=== PATIENT | female | born 1945 | race Caucasian/White ===

== ENCOUNTER 2024-11-02 07:08 | Emergency (ER) | payer BC ==
--- OUTSIDE RECORDS SUMMARY | 2024-11-02 07:11 | XMS REPORT | Continuity of Care Document ---
Author Name Unknown Address [address] [facility] [place] [address] [facility]connect Address [address] [facility] [place] [address] Care Team Providers Care Devil Tender Name Role Phone GUNNER MA Attending Clinician Unavailab RUIZ Lynch Attending Clinician Unavailable SIMI FRASER Attending Clinician Unavailable LAB90 Attending Clinician Unavailable Ruiz Tovar DO Attending Clinician [phone] Payers Payer Name Policy Type Policy Number Effective Date Expirati on Date Source [facility] 2 [id number] 2021 00:00:00 Problems Condition Name Condition Details Condition Category Status Onset Date Resolution Date Last Treatment Date Treating Clinician Comments Source Prediabete s Prediabete s Disease Active 05-07 00:00: 00 Overview: Formattin g of this note might be different from the original. Lab 04/2022 A1c 5.8 Violet Seybold - Externa l Seasonal allergic rhinitis due to pollen Seasonal allergic rhinitis due to pollen Disease Active 05-06 00:00: 00 Violet Seybold - Externa l Primary hypertensi on Primary hypertensi on Disease Active 05-06 00:00: 00 Violet Seybold - Externa l Well adult exam Well adult exam Disease Active 05-06 00:00: 00 Violet Seybold - Externa l Overweight (BMI 25.0-29.9) Overweight (BMI 25.0-29.9) Disease Active 05-06 00:00: 00 Violet Petersonold - Externa l Rheumatoid arthritis involving multiple sites with positive rheumatoid factor (multi HCC) Rheumatoid arthritis involving multiple sites with positive rheumatoid factor (multi HCC) Disease Active 03-06 00:00: 00 Overview: Formattin g of this note might be different from the original. Sees Dr. 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 Hx compressi on fx Violet Petersonold - Externa l Primary hypertensi on Primary hypertensi on Disease Active 03-06 00:00: 00 Violet Petersonold - Externa l Acquired hypothyroi dism Acquired hypothyroi dism Disease Active 03-06 00:00: 00 Violet Seybold - Externa l Social History Social Habit Start Date Stop Date Quantity Comments Source ASSERTION Not Violet Maldonado - External History of Occupation Violet Maldonado - External Sexual orientation K olivier Joel - External Alcoholic beverage intake 2024-10-27 00:00:00 2024-10-27 00:00:00 Lifetime non-drinker (finding) Violet Maldonado - External History of Social function 2024-10-27 00:00:00 2024-10-27 00:00:00 Violet Maldonado - External Alcohol intake 2023-08-20 00:00:00 2023-08-20 00:00:00 Lifetime non-drinker (finding) Violet Maldonado - External Tobacco use and exposure 2022-05-06 00:00:00 2022-05-06 00:00:00 Smokeless tobacco non-user Violet Maldonado - External Education 2022-05-06 00:00:00 2022-05-06 00:00:00 12 Violet Maldonado - External Sex 2021-02-13 17:13:21 2021-02-13 17:13:21 Female (finding) Violet Sinha Sex assigned at 1945 00:00:00 1945 00:00:00 Violet Sinha Smoking Status Start Date Stop Date Source Never smoked tobacco Violet Sinha Medications Ordered Medication Name Filled Medication Name Start Date Stop Date Current Medication? Ordering Clinician Indication Dosage Frequency Signature (SIG) Comments Components Source methylpredn isolone succinate (SOLU-MEDRO L) 40 mg/mL injection 2023-11 10:22: 28 No [id number] 40mg 40 mg, intramuscu lar, ONCE, On Fri10/27/24 at 1015, For 1 dose Violet wagoner Leflunomide 20 MG oral Tablet 2023-11 09:49: 07 Yes 20mg Take 1 tablet (20 mg total) by mouth 4 TIMES A WEEK. Violet wagoner Aspirin 81 MG oral Tablet Delayed Response 2023-11 09:49: 07 Yes 81mg QD Take 1 tablet (81 mg total) by mouth daily. Violet wagoner Abatacept (Orencia) 250 MG intravenous Recon Soln 2023-11 09:49: 07 Yes 4mL Inject 4 mL into the vein once a month Violet wagoner Insulin Syringe-Nee dle U-100 (INSULIN SYRINGE 1CC/31GX5/1 6") 31G X 5/16" 1 ML does not apply [facility] 2023-11 09:49: 07 Yes insulin syringe 31g x 5/16" 1 ml [facility] Violet wagoner hydroCHLORO thiazide 12.5 MG oral Capsule 2023-11 00:00: 00 Yes [id number] 12.5mg Take 1 capsule (12.5 mg total) by mouth every morning. Violet wagoner Levothyroxi ne Sodium 100 MCG oral Tablet 03-05 00:00: 00 Yes [id number] 100ug QD Take 1 tablet (100 mcg total) by mouth daily. Violet wagoner Pantoprazol e Sodium 40 MG oral Tablet Delayed Response 01-25 00:00: 00 Yes [id number] 40mg QD Take 1 tablet (40 mg total) by mouth daily. Violet wagoner Amlodipine Besylate 2.5 MG oral Tablet 2022-11 00:00: 00 Yes [id number] 2.5mg QD TAKE 1 TABLET(2.5 MG) BY MOUTH DAILY Violet wagoner Hydroxychlo roquine Sulfate 200 MG oral Tablet 2022-11 10:42: 11 08-20 00:00 :00 No hydroxychl oroquine 200 mg tablet Violet wagoner Sulfasalazi ne 500 MG oral Tablet 2022-11 10:41: 30 08-20 00:00 :00 No 500mg Take 1 tablet (500 mg total) by mouth 3 times daily. Violet wagoner Tizanidine HCl 4 MG oral Tablet 2022-11 10:41: 24 08-20 00:00 :00 No 4mg Take 1 tablet (4 mg total) by mouth 4 times daily. Violet wagoner Zoledronic Acid (RECLAST) 5 MG/100ML intravenous Solution 2022-11 10:41: 14 08-20 00:00 :00 No Inject into the vein once Violet wagoner Leflunomide 10 MG oral Tablet 2022-11 10:24: 58 Yes 10mg Take 1 tablet (10 mg total) by mouth 4 TIMES A WEEK. Violet wagoner Aspirin 81 MG oral Tablet Delayed Response 2022-11 10:24: 58 Yes 81mg Take 1 tablet (81 mg total) by mouth daily. Violet wagoner Abatacept (Orencia) 250 MG intravenous Recon Soln 2022-11 10:24: 58 Yes 4mL Inject 4 mL into the vein once a month Violet wagoner Insulin Syringe-Nee dle U-100 (INSULIN SYRINGE 1CC/31GX5/1 6") 31G X 5/16" 1 ML does not apply Misc 2022-11 10:24: 58 Yes insulin syringe 31g x 5/16" 1 ml [facility] Violet wagoner Enalapril Maleate 20 MG oral Tablet 2022-11 00:00: 00 Yes [id number] 20mg QD Take 1 tablet (20 mg total) by mouth daily. Violet wagoner Hydroxychlo roquine Sulfate 200 MG oral Tablet 2022-11 00:00: 00 Yes [id number] 200mg Q.5D Take 1 tablet (200 mg total) by mouth 2 times daily. Violet wagoner Gabapentin 100 MG oral Capsule 2022-11 00:00: 00 Yes [id number] 100mg Q.5D Take 1 capsule (100 mg total) by mouth 2 times daily. Violet wagoner Pantoprazol e Sodium 40 MG oral Tablet Delayed Response 2022-11 00:00: 00 Yes [id number] 40mg Take 1 tablet (40 mg total) by mouth daily. Violet wagoner Amlodipine Besylate 2.5 MG oral Tablet 2022-11 00:00: 00 Yes [id number] 2.5mg Take 1 tablet (2.5 mg total) by mouth daily. Violet wagoner Levothyroxi ne Sodium 112 MCG oral Tablet 2022-11 00:00: 00 Yes [id number] 112ug Take 1 tablet (112 mcg total) by mouth daily. Violet wagoner hydroCHLORO thiazide 12.5 MG oral Capsule 2022-11 00:00: 00 10-27 00:00 :00 No [id number] 12.5mg Take 1 capsule (12.5 mg total) by mouth every morning. Violet wagoner Enalapril Maleate 20 MG oral Tablet 08-03 00:00: 00 08-20 00:00 :00 No [id number] 20mg Take 1 tablet (20 mg total) by mouth daily. Violet wagoner Amlodipine Besylate 2.5 MG oral Tablet 08-03 00:00: 00 08-20 00:00 :00 No [id number] 2.5mg Take 1 tablet (2.5 mg total) by mouth daily. Violet wagoner hydroCHLORO thiazide 12.5 MG oral Capsule 05-23 00:00: 00 08-20 00:00 :00 No [id number] 12.5mg Take 1 capsule (12.5 mg total) by mouth every morning Violet wagoner Gabapentin 100 MG oral Capsule 05-23 00:00: 00 08-20 00:00 :00 No Violet wagoner FLUTICASONE PROPIONATE, NASAL, 50 MCG/ACT nasal Suspension 04-18 00:00: 00 Yes [id number] 50ug QD Use 1 spray (50 mcg total) in each nostril daily Violet wagoner Levothyroxi ne Sodium 112 MCG oral Tablet 04-18 00:00: 00 08-20 00:00 :00 No [id number] 112ug Take 1 tablet (112 mcg total) by mouth daily Violet wagoner Methotrexat e, PF, 50 MG/2ML injection Solution 02-21 00:00: 00 Yes INJECT 0.5 ML SUBCUTANEO US ONCE A WEEK Violet wagoner Folic Acid 1 MG oral tablet 02-20 00:00: 00 Yes 2mg QD Take 2 tablets (2 mg total) by mouth daily. Violet wagoner Immunizations Ordered Immunization Name Filled Immunization Name Date Status Comments Source Pneumococcal Vaccine, Conjugate 13 Unknown Completed Violet Sinha Covid-19 Vaccine Moderna (Spikevax), Mrna-lnp, Ivan Protein, Pf Unknown Completed Violet Pandya [facility] Tdap- (Boostrix, Adacel) Unknown Completed Violet Sinha Shingles SQ (Zostavax) Unknown Completed Violet Sinha Influenza Virus Vaccine, Quadrivalent, High Dose, Age 65 And Up Unknown Completed Violet rodríguez [facility] Shingles IM (Shingrix) Unknown Completed Violet Maldonado Bharath Pneumococcal Vaccine, Conjugate 13 Unknown Completed Violet Sinha Covid-19 Vaccine Moderna (Spikevax), Mrna-lnp, Ivan Protein, Pf Unknown Completed Violet Pandya [facility] Tdap- (Boostrix, Adacel) Unknown Completed Violet Maldonado - External Shingles SQ (Zostavax) Unknown Completed Violet Petersonliv - External Influenza Virus Vaccine, Quadrivalent, High Dose, Age 65 And Up Unknown Completed Violet Jeffrey harmonbold - External Vital Signs Vital Name Observation Time Observation Value Fadia millan Systolic blood pressure 2024-10-27 15:43:00 120 mm[Hg] Violet Rosarioybo ld - External Diastolic blood pressure 2024-10-27 15:43:00 62 mm[Hg] Violet Rosarioybo ld - External Heart rate 2024-10-27 15:43:00 85 /min Prince y Seybold - External Respiratory rate 2024-10-27 15:43:00 18 /min Violet Rosarioybold - External Body height 2024-10-27 15:43:00 167.6 cm Macie ey Seybold - External Body weight 2024-10-27 15:43:00 82.101 kg Macie ey Seybold - External BMI 2024-10-27 15:43:00 29.21 kg/m2 Macie ey Seybold - External Oxygen saturation in Arterial blood by Pulse oximetry 2024-10-27 15:43:00 92 /min Violet Petersono ld - External Heart rate 2023-08-20 15:20:00 81 /min Princese deal Seybold - External Body temperature 2023-08-20 15:20:00 37.06 Petrona Violet Rosarioybold - External Respiratory rate 2023-08-20 15:20:00 20 /min Violet Rosarioybold - External Body height 2023-08-20 15:20:00 167.6 cm Macie ey Seybold - External Body weight 2023-08-20 15:20:00 80.377 kg Macie ey Seybold - External BMI 2023-08-20 15:20:00 28.60 kg/m2 Macie ey Seybold - External Systolic blood pressure 2023-08-20 15:20:00 130 mm[Hg] Violet Rosarioybo ld - External Diastolic blood pressure 2023-08-20 15:20:00 89 mm[Hg] Violetsue Petersono ld - External Encounters Start Date/Time End Date/Time Encounter Type Admission Type Attending [facility] Facility Care Department Encounter ID Source 2024-12-29 09:00:00 2024-12-29 09:00:00 Outpatient [facility]UNNER [facility] [id number] [facility] 2024-10-27 09:30:00 2024-10-27 09:30:00 Outpatient GUNNER MA VIOLET [id number] Violet Rosarioliv 2024-05-19 00:00:00 2024-05-19 00:00:00 Outpatient PREZAS, RUIZ VIOLET MARIN [id number] Violet [facility] 2024-03-31 00:00:00 2024-03-31 00:00:00 Outpatient AGASIMI VIOLET MARIN [id number] Violet [facility] 2024-03-05 00:00:00 2024-03-05 00:00:00 Outpatient PREZAS, RUIZ VIOLET MARIN [id number] Violet [facility] 2024-02-25 00:00:00 2024-02-25 00:00:00 Outpatient PREZAS, RUIZ [facility]IOLET MAR[facility] [id number] [facility]24-[facility] 00:00:00 2024-01-25 00:00:00 Outpatient PREZAS, RUIZ VIOLET MARIN [id number] [facility] 2023-12-18 00:00:00 2023-12-18 00:00:00 Outpatient PREZAS, RUIZ VIOLET MARIN [id number] Violet [facility] 2023-12-18 00:00:00 2023-12-18 00:00:00 Outpatient PREZAS, URIZ VIOLET MARIN [id number] [facility] 2023-12-16 10:50:00 2023-12-16 10:50:00 Outpatient LABAlejandro MARIN [id number] [facility] 2023-11-25 00:00:00 2023-11-25 00:00:00 Outpatient PREZAS, RUIZ VIOLET MARIN [id number] [facility] 2023-10-16 00:00:00 2023-10-16 00:00:00 Outpatient PREZAS, RUIZ MARIN [id number] [facility] 2023-10-15 09:30:00 2023-10-15 09:30:00 Outpatient LAB90 VIOLET MARIN [id number] [facility] 2023-10-11 00:00:00 2023-10-11 00:00:00 Outpatient PREZAS, RUIZ MARIN [id number] Violet Rosarioybliv 2023-08-28 00:00:00 2023-08-28 00:00:00 Outpatient PREZAS, RUIZ MARIN VIOLET [id number] [facility] 2023-08-28 00:00:00 2023-08-28 00:00:00 Outpatient PREZAS, RUIZ MARIN VIOLET [id number] [facility] 2023-08-27 08:35:00 2023-08-27 08:35:00 Outpatient LAB90 VIOLET MARIN [id number] [facility] 2023-08-20 10:15:00 2023-08-20 10:15:00 Outpatient PREZAS, RUIZ MARIN VIOLET [id number] [facility] 2023-08-03 00:00:00 2023-08-03 00:00:00 Outpatient PREZAS, RUIZ MARIN VOILET [id number] [facility] 2023-08-03 00:00:00 2023-08-03 00:00:00 Outpatient PREZAS, RUIZ MARIN VIOLET [id number] [facility] 2023-08-03 00:00:00 2023-08-03 00:00:00 Outpatient PREZAS, RUIZ MARIN VIOLET [id number] [facility] 2023-07-02 00:00:00 2023-07-02 00:00:00 Outpatient PREZAS, RUIZ MARIN VIOLET [id number] [facility] 2023-07-01 00:00:00 2023-07-01 00:00:00 Outpatient PREZAS, RUIZ MARIN VIOLET [id number] [facility] 2023-05-23 00:00:00 2023-05-23 00:00:00 Outpatient PREZAS, RUIZ VIOLET MARIN [id number] [facility] 2023-05-23 00:00:00 2023-05-23 00:00:00 Outpatient PREZAS, RUIZ MARIN VIOLET [id number] [facility] 2023-04-18 00:00:00 2023-04-18 00:00:00 Outpatient PREZAS, RUIZ MARIN VIOLET [id number] [facility] 2023-04-18 00:00:00 2023-04-18 00:00:00 Outpatient PREZAS, RUIZ MARIN VIOLET [id number] [facility] 2023-01-27 00:00:00 2023-01-27 00:00:00 Outpatient PREZAS, RUIZ MARIN VIOLET [id number] Violet [facility] 2022-12-26 00:00:00 2022-12-26 00:00:00 Outpatient PREZAS, RUIZ MARIN VIOLET [id number] Violet [facility] 2022-12-25 00:00:00 2022-12-25 00:00:00 Outpatient PREZAS, RUIZ MARIN VIOLET [id number] [facility] 00:00:00 2022 00:00:00 Outpatient PREZAS, RUIZ MARIN VIOLET [id number] [facility] 2022-09-25 00:00:00 2022-09-25 00:00:00 Outpatient PREZAS, RUIZ MARIN VIOLET [id number] [facility] 2022-08-16 00:00:00 2022-08-16 00:00:00 Outpatient PREZAS, RUIZ VIOLET VIOLET [id number] [facility] 2022-08-15 10:40:00 2022-08-15 10:40:00 Outpatient LABAlejandro MARIN VIOLET [id number] [facility] 2022-08-14 00:00:00 2022-08-14 00:00:00 Outpatient PREZAS, RUIZ VIOLET VIOLET [id number] [facility] 2022-08-02 00:00:00 2022-08-02 00:00:00 Outpatient PREZAS, RUIZ VIOLET MARIN [id number] [facility] 2022-05-08 00:00:00 2022-05-08 00:00:00 Outpatient RUIZ TOVAR VIOLET [id number] [facility] 2022-05-07 00:00:00 2022-05-07 00:00:00 Outpatient RUIZ TOVAR VIOLET [id number] [facility] 2022-05-06 10:15:00 2022-05-06 10:15:00 Outpatient LAB90 VIOLET MARIN [id number] [facility] 2022-05-06 09:15:00 2022-05-06 10:00:00 Office Visit Ruiz Tovar Jackson [id number] Violet Maldonado
[2024-11-02 08:13] LABS: Absolute Basophils 0.1 K/uL (0-0.5); Absolute Eosinophils 0.4 K/uL (0-0.5); Absolute Lymphocytes (CBC) 2.2 K/uL (0.7-4.9); Absolute Monocytes 1.2 K/uL (0.1-1.3); Absolute Neutrophil 6.8 K/uL (1.8-8.0); Basophils % 0.5 % (0-1.3); Eosinophils % 3.4 % (0-4.4); Hematocrit 42.8 % (36.0-45.0); Hemoglobin 13.9 g/dL (12.0-15.0); Lymphocytes % 20.7 % (15.3-44.8); MCH 30.2 pg (27.0-35.0); MCHC 32.4 g/dL (32.0-36.0); MCV 93.1 fL (80-100); MPV 8.3 fL (7.6-11.3); Monocytes % 11.7 % (3.3-12.3); Neutrophils % 63.7 % (41.7-73.7); Nucleated Red Blood Cells % 0.1 % (0-0); Platelets 272 thou/uL (152-406); Red Cell Distribution Width 17.3 % (12.1-15.2)
[2024-11-02 08:34] LABS: Albumin 3.1 g/dL (3.4-5.0); Albumin/Globulin Ratio 0.8 (1.1-1.8); Anion Gap 7.8 mEq/L (5.0-15.0); Bilirubin Direct 0.3 mg/dL (0-0.2); Bilirubin Indirect, Calculated 0.7 mg/dL (0.2-0.8); Magnesium 2.2 mg/dL (1.6-2.4); Potassium 3.8 mEq/L (3.5-5.1); Protein, Total 7.1 g/dL (6.4-8.2); Troponin High Sensitivity 10.9 pg/mL (<58.9)
--- NOTE | 2024-11-02 08:37 | RAD REPORT ---
EXAMINATION: XR LEFT WRIST CLINICAL INDICATION: PAIN TECHNIQUE: Multiple projections of the left wrist were obtained. COMPARISON: No prior exam. FINDINGS: Mildly impacted distal radius fracture is seen. No dislocation seen however examination is limited by nonstandard anatomic positioning. No additional fracture evident.
--- NOTE | 2024-11-02 08:38 | RAD REPORT ---
EXAMINATION: ONE VIEW CHEST XR CLINICAL INDICATION: syncope TECHNIQUE: Frontal chest projection is submitted. Examination is limited by patient positioning and t echnique. COMPARISON: 09/02/2012 FINDINGS: The lungs are well inflated and clear. The heart is upper limit of normal in size. No displaced fract ures identified. IMPRESSION: No acute intrathoracic abnormalities.
--- NOTE | 2024-11-02 08:41 | RAD REPORT ---
EXAM: CT brain without contrast HISTORY: SYNCOPE COMPARISON: None TECHNIQUE: Multiple contiguous axial images were obtained and a CT of the brain without contrast. Sag ittal and coronal reformats were performed. One or more of the following dose reduction techniques were used: Automated exposure control, adjust ment of the mA and/or kV according to patient size, and/or iterative reconstruction. FINDINGS: No evidence of hydrocephalus, intracranial hemorrhage, or extra-axial fluid collection. Mild brain atrophy with mild periventricular and deep white matter chronic microvascular ischemic ch anges present. No evidence of midline shift or areas of brain edema. The calvarium is intact. The visualized paranasal sinuses and mastoid air cells are essentially clear . IMPRESSION: No evidence of acute intracranial abnormality. EXAM: CT of the cervical spine without contrast HISTORY: Neck pain, injury SYNCOPE TECHNIQUE: Multiple contiguous axial images were obtained in a CT of the cervical spine without contr ast. Sagittal and coronal reformats were performed. FINDINGS: The vertebral bodies demonstrate normal height and alignment. No evidence of acute fracture or subluxation.. Mild mid and lower cervical spondylosis. No prevertebral soft tissue swelling is seen. The posterior facets are well aligned. Normal alignment of the skull base with the cervical spine is seen. The lung apices are unremarkable. IMPRESSION: No evidence of acute osseous abnormality of the cervical spine. Mild cervical spondylosis.
[2024-11-02] MEDS ORDERED: ONDANSETRON 4 MG/2 ML VIAL ONE (09:29)
[2024-11-02] MEDS ORDERED: MORPHINE 4 MG/ML SYR ONE (09:29)
--- NOTE | 2024-11-02 11:07 | ER ---
Nurse's Notes [facility] Name: Maria Kong Age: 79 yrs Sex: Female : 1945 Arrival Date: 11/02/2024 Time: 07:08 Bed 13 Private MD: Diagnosis: Pain in left wrist;Other fractures of lower end of radius;Syncope Presentation: 11/02 07:24 Chief complaint: Patient states: Syncopal episode this morning while making coffee. Pt ss c/o L wrist pain, and low back pain. Back pain has reportedly been ongoing x 3 weeks. Coronavirus screen: Client denies travel out of the [place] in the last 14 days. Ebola Screen: Patient denies exposure to infectious person. Patient denies travel to an Ebola-affected area in the 21 days before illness onset. Initial Sepsis Screen: Does the patient meet any 2 criteria? No. Patient's initial sepsis screen is negative. Does the patient have a suspected source of infection? No. Patient's initial sepsis screen is negative. Risk Assessment: Do you want to hurt yourself or someone else? Patient reports no desire to harm self or others. Onset of symptoms was November 02, 2024. 07:24 Method Of Arrival: Ambulatory ss 07:24 Acuity: MELLISSA 3 ss Historical: - Allergies: 08:07 No Known Allergies; ph - PMHx: 07:26 Hypertensive disorder; Rheumatoid arthritis; ss - Immunization history:: Adult Immunizations unknown. - Infectious Disease History:: Denies. - Social history:: Smoking status: unknown. Screenin:30 [facility] ED Fall Risk Assessment (Adult) History of falling in the last 3 months, ph including since admission Yes- physiologic fall (2 pts) Confusion or Disorientation No (0 pts) Intoxicated or Sedated No (0 pts) Impaired Gait No (0 pts) Mobility Assist Device Used No (0 pt) Altered Elimination No (0 pt) Score/Fall Risk Level 0 - 2 = Low Risk Oriented to surroundings, Maintained a safe environment, Hourly rounding (assess needs \T\ fall precautionary measures) done. Abuse screen: Denies threats or abuse. Denies injuries from another. Nutritional screening: No deficits noted. Tuberculosis screening: No symptoms or risk factors identified. Assessment: 08:05 General: Appears in no apparent distress. uncomfortable, Behavior is calm, cooperative, ph appropriate for age. Pain: Complains of pain in left wrist. Pain: Complains of pain in low back area. Neuro: Level of Consciousness is awake, alert, obeys commands, Oriented to person, place, time, situation. Cardiovascular: Reports syncope, Capillary refill < 3 seconds in bilateral fingers Patient's skin is warm and dry. Respiratory: Airway is patent Respiratory effort is even, unlabored, Respiratory pattern is regular, symmetrical. GI: No signs and/or symptoms were reported involving the gastrointestinal system. Derm: Skin is pink, warm \T\ dry. Musculoskeletal: Circulation, motion, and sensation intact. 09:27 Reassessment: Patient appears in no apparent distress at this time. Patient and/or ph family updated on plan of care and expected duration. Pain level reassessed. Patient is alert, oriented x 3, equal unlabored respirations, skin warm/dry/pink. Pt ambulatory to restroom with steady gait, denies dizziness. 09:50 Reassessment: Patient appears in no apparent distress at this time. Patient and/or ph family updated on plan of care and expected duration. Pain level reassessed. Patient is alert, oriented x 3, equal unlabored respirations, skin warm/dry/pink. L wrist placed i traction using finger traps and counter weight, pt tolerating well. Vital Signs: 07:24 BP 147 / 100; Pulse 80; Resp 16; Pulse Ox 99% on R/A; Pain 10/10; ss 09:30 BP 130 / 89; Pulse 76; Resp 18; Pulse Ox 97% on R/A; ph 10:30 BP 142 / 90; Pulse 80; Resp 18; Pulse Ox 99% on R/A; ph 11:50 BP 138 / 92; Pulse 72; Resp 18; Temp 98; Pulse Ox 98% on R/A; ph 07:24 Pain Scale: Adult ss ED Course: 07:14 Patient arrived in ED. sj2 07:17 Juan C Siddiqui DO is Attending Physician. ms3 07:22 Sandra De La Torre, RN is Primary Nurse. ph 07:26 Triage completed. ss 07:26 Arm band placed on right wrist. ss 07:31 Patient has correct armband on for positive identification. Bed in low position. Call ph light in reach. Side rails up X 1. Pulse ox on. NIBP on. Door closed. Noise minimized. Warm blanket given. Pillow given. 08:05 Initial lab(s) drawn, by me, sent to lab. EKG done, by ED staff, reviewed by Juan C Siddiqui DO. Inserted saline lock: 22 gauge in right antecubital area, using aseptic technique. Blood collected. Flushed with 10 mL NS. 08:07 Provided Education on: Estimated time for test results. ph 08:15 CT Head C Spine In Process Unspecified. EDMS 08:15 Chest Single View XRAY In Process Unspecified. EDMS 08:15 Wrist Left 2 View In Process Unspecified. EDMS 10:35 Orthoglass splint: Sugar tong splint applied on left arm. ph 11:06 Javi Conrad MD is Referral Physician. ms3 11:51 No provider procedures requiring assistance completed. IV discontinued, intact, ph bleeding controlled, No redness/swelling at site. Pressure dressing applied. Administered Medications: 09:50 Drug: morphine IVP or IV 4 mg IVP once over 4 mins Route: IVP; Infused Over: 4 mins; ph Site: right antecubital; 10:00 Follow up: Response: No adverse reaction; Pain is decreased; RASS: Alert and Calm (0) ph Medication: 07:31 VIS not applicable for this client. ph Outcome: 11:07 Discharge ordered by . ms3 11:52 Discharged to home via wheelchair, with significant other, ph 11:52 Condition: good 11:52 Discharge instructions given to patient, significant other, Instructed on discharge instructions, follow up and referral plans. medication usage, Demonstrated understanding of instructions, follow-up care, medications, Prescriptions given X 1, 11:52 Patient left the ED. ph Signatures: Dispatcher [employer] EDMS Analilia Hyman RN RN Sandra Gu RN RN ph Sims, Marcus, DO DO ms3 Roxana Veloz sj2
--- NOTE | 2024-11-02 11:07 | EDPHYS ---
Physician Documentation [facility] Name: Maria Kong Age: 79 yrs Sex: Female : 1945 Arrival Date: 11/02/2024 Time: 07:08 Bed 13 Private MD: ED Physician Juan C Siddiqui HPI: 11/02 10:56 This 79 yrs old Female presents to ER via Ambulatory with complaints of Fall Injury. ms3 10:56 Maria Kong is a 79-year-old female with a past medical history of rheumatoid ms3 arthritis and hypertension. She presents to the Emergency Department today due to a fall and immobility in her left wrist. This morning around 6 a.m., she blacked out after making coffee and was found by her on the floor. She does not recall if she hit her head during the fall. She reports that her lower back pain is chronic, currently at a pain level of 1 to 2, but at its worst, it reaches a pain level of 10. . Historical: - Allergies: 08:07 No Known Allergies; ph - PMHx: 07:26 Hypertensive disorder; Rheumatoid arthritis; ss - Immunization history:: Adult Immunizations unknown. - Infectious Disease History:: Denies. - Social history:: Smoking status: unknown. ROS: 10:56 Constitutional: Negative for fever, and chills. Cardiovascular: Negative for chest ms3 pain, and palpitations. Respiratory: Negative for shortness of breath, cough, wheezing, and pleuritic chest pain, Abdomen/GI: Negative for abdominal pain, nausea, vomiting, diarrhea, and constipation, 10:56 MS/extremity: Positive for Left wrist pain, 10:56 Neuro: Positive for syncope, Exam: 10:56 Constitutional: This is a well developed, well nourished patient who is awake, alert, ms3 and in no acute distress. Chest/axilla: Normal chest wall appearance and motion. Nontender with no deformity. Cardiovascular: Regular rate and rhythm with a normal S1 and S2. No gallops, murmurs, or rubs. Normal PMI, no JVD. No pulse deficits. Respiratory: Lungs have equal breath sounds bilaterally, clear to auscultation and percussion. No rales, rhonchi or wheezes noted. No increased work of breathing, no retractions or nasal flaring. Abdomen/GI: Soft, non-tender, with normal bowel sounds. No distension or tympany. No guarding or rebound. No evidence of tenderness throughout. Skin: Warm, dry with normal turgor. Normal color with no rashes, no lesions, and no evidence of cellulitis. 10:56 Musculoskeletal/extremity: Extremities: noted in the left wrist: decreased ROM, pain, swelling, tenderness, 11:00 ECG was reviewed by the Attending Physician. ms3 Vital Signs: 07:24 BP 147 / 100; Pulse 80; Resp 16; Pulse Ox 99% on R/A; Pain 10/10; ss 09:30 BP 130 / 89; Pulse 76; Resp 18; Pulse Ox 97% on R/A; ph 10:30 BP 142 / 90; Pulse 80; Resp 18; Pulse Ox 99% on R/A; ph 11:50 BP 138 / 92; Pulse 72; Resp 18; Temp 98; Pulse Ox 98% on R/A; ph 07:24 Pain Scale: Adult ss MDM: 07:36 Medical Screening Exam initiated ms3 10:58 Differential diagnosis: abrasion, closed head injury, contusion, fracture, sprain, ms3 strain, Arrythmia. 11:08 Data reviewed: vital signs, nurses notes, lab test result(s), EKG, radiologic studies, ms3 and as a result, I will discharge patient. Consideration of Admission/Observation Escalation of care including admission/observation considered. Patient declines observation. I considered the following discharge prescriptions or medication management in the emergency department Medications were administered in the Emergency Department. See MAR. Independent interpretation of the following test(s) in the Emergency Department EKG: See my EKG interpretation above X-Ray: My interpretation is Left wrist x-ray images reviewed by me reveals radius fracture. Care significantly affected by the following chronic conditions: Hypertension. 11:09 Counseling: I had a detailed discussion with the patient and/or guardian regarding the ms3 historical points, exam findings, and any diagnostic results supporting the discharge/admit diagnosis, lab results, radiology results, the need for outpatient follow up, to return to the emergency department if symptoms worsen or persist or if there are any questions or concerns that arise at home. Response to treatment: the patient's symptoms have markedly improved after treatment, and as a result, I will discharge patient. Refusal of service: The patient/guardian displays adequate decision making capability and despite a detailed discussion of alternatives, benefits, risks, and consequences refuses: Admission to the hospital for further work-up and treatment. ED course: Discussed observation with the patient and patient declines. Discussed with patient concern for arrhythmia, or other cause for syncope that may go undiagnosed causing disability or . Patient to follow-up with her primary care physician in 2 to 3 days. Patient to follow-up Dr. Conrad in 2 to 3 days. Patient understands and agrees with plan. All questions were answered. Return precautions discussed include worsening symptoms, or any other concerns.. 11/02 07:37 Order name: Basic Metabolic Panel; Complete Time: 08:44 ms3 11/02 07:37 Order name: CBC with Diff; Complete Time: 08:44 ms3 11/02 07:37 Order name: Hepatic Function; Complete Time: 08:44 ms3 11/02 07:37 Order name: Magnesium; Complete Time: 08:44 ms3 11/02 07:37 Order name: Troponin High Sensitivity; Complete Time: 08:44 ms3 11/02 07:37 Order name: CT Head C Spine; Complete Time: 08:44 ms3 11/02 07:37 Order name: Chest Single View XRAY; Complete Time: 08:44 ms3 11/02 08:15 Order name: Wrist Left 2 View; Complete Time: 08:44 EDMS 11/02 07:37 Order name: Cardiac monitoring; Complete Time: 08:03 ms3 11/02 07:37 Order name: EKG - Nurse/Tech; Complete Time: 08:03 ms3 11/02 07:37 Order name: IV Saline Lock; Complete Time: 08:03 ms3 11/02 07:37 Order name: Labs collected and sent; Complete Time: 08:03 ms3 11/02 07:37 Order name: NPO; Complete Time: 08:03 ms3 11/02 07:37 Order name: O2 Per Protocol; Complete Time: 08:03 ms3 11/02 07:37 Order name: O2 Sat Monitoring; Complete Time: 08:03 ms3 EC:00 Rate is 65 beats/min. Rhythm is regular. Left axis deviation noted. AL interval is ms3 normal. QRS interval is prolonged. Clinical impression: NSR w/ Non-specific ST/T Changes and LBBB. Interpreted by me. Reviewed by me. Administered Medications: :50 Drug: morphine IVP or IV 4 mg IVP once over 4 mins Route: IVP; Infused Over: 4 mins; ph Site: right antecubital; 10:00 Follow up: Response: No adverse reaction; Pain is decreased; RASS: Alert and Calm (0) ph Disposition Summary: 11/02/24 11:07 Discharge Ordered Notes: Location: Home ms3 Condition: Stable ms3 Diagnosis - Pain in left wrist ms3 - Other fractures of lower end of radius ms3 - Syncope ms3 Followup: ms3 - With: Javi Conrad MD - When: 2 - 3 days - Reason: Recheck today's complaints Discharge Instructions: - Discharge Summary Sheet ms3 - Musculoskeletal Pain ms3 - Syncope ms3 - Syncope, [id number] ms3 Forms: - Medication Reconciliation Form ms3 - Antibiotic Education ms3 - Prescription Opioid Use ms3 - Patient Portal Instructions ms3 - Leadership Thank You Letter ms3 Prescriptions: - Tramadol 50 mg Oral Tablet - take 1 tablet ORAL route every 8 hours as needed; 12 tablet; Refills: 0, ms3 Product Selection Permitted Signatures: Dispatcher [employer] EDMS Analilia Hyman RN RN ss Sandra De La Torre RN RN ph Sims, Marcus, DO DO ms3 Corrections: (The following items were deleted from the chart) 07:37 07:37 BASIC METABOLIC PANEL+C.LAB.BRZ ordered. EDMS EDMS 07:37 07:37 CBC+H.LAB.BRZ ordered. EDMS EDMS 07:37 07:37 HEPATIC FUNCTION+C.LAB.BRZ ordered. EDMS EDMS 07:37 07:37 MAGNESIUM+C.LAB.BRZ ordered. EDMS EDMS 07:37 07:37 PROTIME (+INR)+COAG.LAB.BRZ ordered. EDMS EDMS 07:37 07:37 PTT, ACTIVATED+COAG.LAB.BRZ ordered. EDMS EDMS 07:37 07:37 Troponin High Sensitivity+C.LAB.BRZ ordered. EDMS EDMS 07:38 07:37 Head C Spine MPR Wo Con+CT.RAD.BRZ ordered. EDMS EDMS 07:38 07:38 Chest Single View+RAD.RAD.BRZ ordered. EDMS EDMS 07:38 07:38 Wrist Left 3 View+RAD.RAD.BRZ ordered. EDMS EDMS 08:52 08:51 Splint - Sugar Tong - Forearm ordered. ms3 ms3 10:58 10:56 MS/extremity: Positive for Right wrist pain, ms3 ms3
[2024-11-02 12:24] VITALS: BP 138/92; TEMP 98; O2SAT 98
--- NOTE | 2024-11-04 11:33 | EKG ---
Test Date: 2024-11-02 Test Time: 07:54:55 Jawbone Breaker: PH MEASUREMENT RESULTS: Intervals: Rate: 65 VT: 180 QRSD: 148 QT: 450 QTc: 468 [place]: P: 15 VT: 180 QRS: -27 T: 123 INTERPRETIVE STATEMENTS: Normal sinus rhythm Left bundle branch block Abnormal ECG Compared to ECG 12/01/2012 08:54:31 No significant changes Electronically Signed On 11-04-24 11:31:33 LAP MAKER by Scottie Dodson
== END 2024-11-02 11:52 | disposition home or self-care (01) ==
LOC: ER 07:08
DX: S52.592A Other fractures of lower end of left radius, initial encounter for closed fracture (principal); R55 Syncope and collapse
CPT/HCPCS: 85025; 80048; 36415; 83735; 80076; 84484; 70450; 72125; 71045; 73100; 96374; 99285; J2405; 93005